=== PATIENT | male | born 1985 | race Caucasian/White ===

== ENCOUNTER 2017-05-11 20:40 | Emergency (ER) | payer BC ==
[~2017-05-11] VITALS: Ht 177.8 cm; Wt 95.3 kg
[2017-05-11 20:42] VITALS: TEMP 36.8; Ht 177.8 cm; Wt 95.3 kg
[2017-05-11] MEDS ORDERED: XYLOCAINE 1%/SOD BICARB 20 ML VIAL INFIL ONE (21:15)
--- NOTE | 2017-05-11 21:42 | DIAGNOSTIC IMAGING REPORT ---
LEFT THUMB RADIOGRAPHS CLINICAL HISTORY: Left thumb laceration COMPARISON: None FINDINGS: There is an oblique mildly displaced fracture through the distal shaft and distal tuft of the distal phalanx of the left thumb. Several bone fragments are present. The larger bone fragment measures 1.2 cm while the smaller fragment measures 0.5 cm. IMPRESSION: Acute mildly displaced oblique fracture of the distal phalanx of the left thumb with several associated bone fragments. Electronically signed by: Merrill Zhou M.D. 05/11/2017 9:40 PM Dictated Date/Time: 05/11/2017 9:39 PM
[2017-05-11] MEDS ORDERED: SULF800T23 PO (21:43)
[2017-05-11] MEDS ORDERED: CEPHALEXIN 500MG HOME PACK 1 EA BTL PO ONE (21:45)
[2017-05-11] MEDS ORDERED: CEPHALEXIN MONOHYDRATE 250 MG CAP PO ONE (21:45)
[2017-05-11] MEDS ORDERED: CEPH500C PO (22:53)
[2017-05-11] MEDS ORDERED: OXYC1TAB3 PO (22:53)
[2017-05-11 22:58] VITALS: BP 126/74; PULSE 95; O2SAT 100
[2017-05-11] MEDS ORDERED: OXYCODONE IR HOME PACK PO ONE (23:00)
--- NOTE | 2017-05-11 23:19 | EMERGENCY ROOM VISIT NOTE ---
History First contact with patient: 21:03 Chief Complaint: LACERATION/CUT (NON-SUTURE) Stated Complaint: CUT LF THUMB W/HATCHET Nursing Triage Summary: Patient states, "I was cutting firewood and got a little to close to my thumb with a hatchet." Laceration to left thumb. History of Present Illness The patient is a 32 year old male who presents to the Emergency Room with complaints of a laceration to his left thumb. He was cutting firewood with a hatchet. Does report moderate bleeding. The patient is [id number], and rates his discomfort a 4 out of 10. Review of Systems 10 system review was performed and was negative except for pertinent positives and negatives as indicated in history of present illness Past Medical/Surgical History Medical Problems: (1) No significant past medical history Surgical Problems: (1) No history of previous surgery Family History Unremarkable Social History Smoking Status: Never Smoker Alcohol Use: occasionally Marital Status: Housing Status: lives with family Occupation Status: employed Current/Historical Medications Scheduled Cephalexin Monohydrate (Keflex), 500 MG PO QID Sulfa/Trimethoprim (Bactrim Ds 800MG/160MG), 1 TAB PO BID Scheduled PRN Oxycodone Ir (Roxicodone Ir), 1-2 TAB PO Q4H PRN for Pain Physical Exam Vital Signs Date Time Temp Pulse Resp B/P (MAP) Pulse Ox O2 Delivery O2 Flow Rate FiO2 05/11/17 22:58 95 18 126/74 100 Room Air 05/11/17 20:42 36.8 120 18 141/79 100 Room Air Pain Rating (0-10): 4.0 Physical Exam CONSTITUTIONAL: Healthy and well nourished. Alert and oriented X 3 with positive affect. Patient does not appear in any acute distress. HEENT: Normocephalic, atraumatic. Pupils equal, round and reactive. NECK: Full active range of motion without discomfort. MUSCULOSKELETAL: Examination of the left thumb shows a laceration that starts at the tip of the thumb, extends longitudinally through the nail, across the dorsum of the thumb, and then goes toward the radial aspect of the proximal phalanx region. There is a similar laceration on volar surface of the thumb that terminates at the same proximal and radial aspect of the thumb. The laceration extends through the bone as well. There is no significant active bleeding on initial exam. The patient is able to flex and extend the finger. Capillary refill is less than 2 seconds. INTEGUMENTARY: No rash or other significant dermatologic conditions noted. NEUROLOGIC: Left thumb is sensory intact. Medical Decision & Procedures ER Provider Diagnostic Interpretation: My interpretation of left thumb x-rays shows a longitudinal laceration through the radial aspect of the distal phalanx, terminating just distal to the IP joint. No joint dislocation noted. Radiologist report is as follows: LEFT THUMB RADIOGRAPHS CLINICAL HISTORY: Left thumb laceration COMPARISON: None FINDINGS: There is an oblique mildly displaced fracture through the distal shaft and distal tuft of the distal phalanx of the left thumb. Several bone fragments are present. The larger bone fragment measures 1.2 cm while the smaller fragment measures 0.5 cm. IMPRESSION: Acute mildly displaced oblique fracture of the distal phalanx of the left thumb with several associated bone fragments. Medications Administered Medications (Trade) Dose Ordered Sig/Ramesh Route Start Time Stop Time Status Last Admin Dose Admin Cephalexin Monohydrate (Keflex Cap) 500 mg NOW ONCE PO 05/11/17 21:45 05/11/17 21:46 DC 05/11/17 21:43 500 MG Oxycodone HCl (Roxicodone Immediate Rel 5MG Home Pack) 1 homepack UD ONCE PO 05/11/17 23:00 05/11/17 23:01 DC 05/11/17 23:08 1 HOMEPACK Procedure Wound irrigation and laceration repair was performed under digital block anesthesia after receiving verbal consent from the patient. Using buffered 1% lidocaine without epinephrine, good digital block anesthesia was administered. The wound was then copiously irrigated with a liter of normal saline via a [employer] pressure lavage kit. After irrigation was performed, there was no active bleeding. A finger tourniquet was applied. Exploration of the wound does not show any additional underlying foreign debris. The patient has a through and through laceration of the bone. Sterile field was created. Using appropriate landmarks of skin creases, tip of the nail and cuticle, the wound was approximated using accommodation of 4-0 and 5-0 nylon simple interrupted sutures 23. The patient had excellent wound edge approximation without any active bleeding. Total laceration length was 12 cm. A bacitracin bulky dressing and metal splint were applied. ED Course Patient history and physical exam were performed. Nurse's notes were reviewed. Vital signs were reviewed and normal. X-rays of the left thumb confirms an open fracture. Pulse lavage was used to irrigate the wound prior to closure. The patient was administered Keflex 500 mg orally. A metal splint was applied to further support the fracture and reduce any stress on the tendons. The patient reports that he is from near [place], and will follow-up with a hand surgeon early next week. The patient was provided a copy of his x-rays to take with him. The patient was provided home packs and prescriptions for Keflex and OxyIR 5 mg. He was instructed to watch for any signs of developing infection. The patient was happy with plan of care, voiced understanding of all discharge instructions, and denied any pain at the time of discharge. Medical Decision Blood Pressure Screening Patient's blood pressure: Normal blood pressure Impression Primary Impression: Fracture of thumb, left, open Additional Impression: Laceration of thumb with damage to nail Departure Information Dispostion Home / Self-Care Prescriptions Oxycodone Ir (Roxicodone Ir) 5 Mg Tab 1-2 TAB PO Q4H Y for Pain, #15 TAB For Initial Treatment Prov: Rodolfo Marino PA 05/11/17 Cephalexin Monohydrate (Keflex) 500 Mg Cap 500 MG PO QID for 6 Days, #24 CAP Prov: Rodolfo Marino PA 05/11/17 Forms HOME CARE DOCUMENTATION FORM, IMPORTANT VISIT INFORMATION Patient Instructions [facility] Additional Instructions Keep wound clean and covered with an antibiotic ointment and dressing. Keep dressing dry. Do not allow any crusting or dried blood to accumulate on sutures. If this occurs, use a 1:1 solution of hydrogen peroxide/water on a Q- tip to clean the wound. Watch for any signs of infection (increasing redness, swelling, drainage). Ice and elevate for swelling and pain. Ibuprofen 800 mg and/or Tylenol 1000 mg every 8 hours. You may also alternate these medications for more effective pain relief: Ibuprofen --4 HRS--> Tylenol --4 HRS--> ibuprofen --4 HRS--> Tylenol .... OxyIR if needed for worse pain. Do not drink alcohol or drive while taking OxyIR. Complete Keflex antibiotics as prescribed. Follow-up with a hand surgeon in [place] early next week for reevaluation and management. Problem Qualifiers Primary Impression: Fracture of thumb, left, open Encounter type: initial encounter Phalanx: distal Fracture alignment: displaced Qualified Codes: S62.522B - Displaced fracture of distal phalanx of left thumb, initial encounter for open fracture Additional Impression: Laceration of thumb with damage to nail Encounter type: initial encounter Foreign body presence: without foreign body Laterality: left Qualified Codes: S61.112A - Laceration without foreign body of left thumb with damage to nail, initial encounter
== END 2017-05-11 23:09 | disposition home or self-care (01) ==
LOC: C.EDB 20:41 → C.EDD 23:09
DX: S62.522B Displaced fracture of distal phalanx of left thumb, initial encounter for open fracture (principal); S61.112A Laceration without foreign body of left thumb with damage to nail, initial encounter; W45.8XXA Other foreign body or object entering through skin, initial encounter; Y93.89 Activity, other specified